=== PATIENT | male | born 1950 | race Caucasian/White ===

== ENCOUNTER 2017-05-12 19:57 | Emergency (ER) | payer OTHER ==
[~2017-05-12] VITALS: Ht 180.3 cm; Wt 90.1 kg
[~2017-05-12 19:57] MED LIST: ASPI81TA21 PO; ATEN50TA PO; LISI-461 PO; MULTTAB58 PO; ONDA4TAB7 SL; PROC1TAB5 PO; SILD100T PO; SIMV20TA2 PO; TESTOSTERONE CYPIONATE IM
[2017-05-12 19:59] VITALS: TEMP 36.8; Ht 180.3 cm; Wt 90.1 kg
[2017-05-12] MEDS ORDERED: PROMETHAZINE HCL INJ 25 MG in SODIUM CHLORIDE 0.9% 50ML 50 ML IV STA (20:16)
[2017-05-12] MEDS ORDERED: SODIUM CHLORIDE 0.9% 1000ML 1,000 ML IV STA (20:16)
[2017-05-12] MEDS ORDERED: MoRPHine SULFATE 10 MG/ML CARP/VIAL IV STA (20:16)
[2017-05-12] MEDS ORDERED: MoRPHine SULFATE 4 MG/ML 1 ML CARP\\VIAL ONE (20:29)
[2017-05-12] MEDS ORDERED: MoRPHine SULFATE 2 MG/ML CARP ONE (20:29)
[2017-05-12 20:32] LABS: BASO % 0.1 %; BASO ABS # 0.01 K/uL (0-0.2); COMPLETE YES; IG% 0.3 %; LYMPH % 6.1 %; MEAN CELL VOLUME 89.9 fL (80-100); MEAN CORPUSCULAR HEMOGLOBIN 31.6 pg (25-34); MEAN CORPUSCULAR HGB CONC 35.1 g/dl (32-36); MEAN PLATELET VOLUME 11.3 fL (7.4-10.4); MONO % 2.3 %; NEUT % 91.2 %; PLATELET COUNT 244 K/uL (130-400); RED BLOOD COUNT 4.56 M/uL (4.7-6.1); WHITE BLOOD COUNT 11.46 K/uL (4.8-10.8)
[2017-05-12 20:55] LABS: BUN/CREATININE RATIO 8.2 (10-20); CREATININE 1.3 mg/dl (0.60-1.40); POTASSIUM 3.8 mmol/L (3.5-5.1)
--- NOTE | 2017-05-12 21:36 | DIAGNOSTIC IMAGING REPORT ---
PA CHEST RADIOGRAPH AND UPRIGHT AND SUPINE AP RADIOGRAPHS OF THE ABDOMEN CLINICAL HISTORY: Upper abdominal pain and vomiting. COMPARISON STUDY: Chest radiograph with abdominal series October 01, 2013. FINDINGS: No pneumothorax or pleural effusion is present. Pulmonary vascularity is normal. Mild left basilar opacity suggests atelectasis. There is no consolidation to suggest pneumonia. Cardiomediastinal silhouette is normal. A 3.4 cm calcified abnormality projecting inferior to the right coracoid process is unchanged since earlier exams. This is likely within the subcoracoid bursa and suggests a loose body. There is no free air. Mild dextroscoliosis of the lumbar spine is present. Pelvic calcifications likely reflect phleboliths. The bowel gas pattern is normal. IMPRESSION: 1. No free air or evidence of bowel obstruction. 2. No acute cardiopulmonary findings. Electronically signed by: Trent Marks M.D. 05/12/2017 9:35 PM Dictated Date/Time: 05/12/2017 9:29 PM
[2017-05-12] MEDS ORDERED: ONDANSETRON HOME PACK 4MG OD TAB PO ONE (22:00)
[2017-05-12] MEDS ORDERED: ONDA4TAB10 SL (22:10)
--- NOTE | 2017-05-12 22:13 | EMERGENCY ROOM VISIT NOTE ---
History First contact with patient: 20:03 Chief Complaint: ABDOMINAL PAIN Stated Complaint: STOMACH VERY UPSET Nursing Triage Summary: Dealing with pain for 6 years, but acute onset today at 0930. Did have some pain yesterday. Pressure under rib cage. Hx gastroenteritis. History of Present Illness The patient is a 67 year old male who presents to the Emergency Room with complaints of intense abdominal pain. The patient states he has had issues with his stomach for the past 6 years. He reports he has occasional flareups of pain and vomiting. He has had a gradual onset of symptoms beginning yesterday morning. He reports he had intense pain in his upper abdomen. He has associated nausea and vomiting. He rates his discomfort a 9/10. The patient has had multiple episodes similar to this previously. He states this is not the worst episode of symptoms he has had. He describes the pain as a feeling of pressure. He has seen multiple specialists and had endoscopies performed. He reports that most recently, he was told by gastroenterology that his symptoms were secondary to his marijuana use. He continues to use marijuana. He denies fevers/chills, chest pain, shortness of breath, changes in bowel movements, urinary symptoms, hematemesis, melena or hematochezia. Review of Systems A complete 10 point review of systems was reviewed with the patient with pertinent positives and negatives as per history of present illness. All else were negative. Past Medical/Surgical History Medical Problems: (1) HYPERTENSION NOS Social History Smoking Status: Former Smoker Alcohol Use: occasionally Drug Use: none Marital Status: single Housing Status: lives alone Occupation Status: unemployed Current/Historical Medications Scheduled Atenolol (Tenormin), 50 MG PO DAILY Lisinopril (Zestril), 10 MG PO DAILY Multiple Vitamin (Multivitamin), 1 TABLET PO DAILY Ondasetron Odt (Zofran Odt), 4 MG SL Q6H Sildenafil Citrate (Viagra), 50-100 MG PO PRN/UD Simvastatin (Zocor), 20 MG PO HS Physical Exam Vital Signs Date Time Temp Pulse Resp B/P (MAP) Pulse Ox O2 Delivery O2 Flow Rate FiO2 05/12/17 22:19 86 18 132/76 98 05/12/17 20:20 78 20 162/86 96 Room Air 05/12/17 19:59 36.8 89 20 160/95 95 Room Air Physical Exam VITALS: Vitals are noted on the nurse's note and reviewed by myself. Vital signs stable. GENERAL: This is a 67-year-old male, in no acute distress, nondiaphoretic, well- developed well-nourished. EARS: External auditory canals clear, tympanic membranes pearly [place] without erythema or effusion bilaterally. EYES: Pupils equal round and reactive to light and accommodation. MOUTH: Mucous membranes moist. NECK: Supple without nuchal rigidity. HEART: Regular rate and rhythm without murmurs gallops or rubs. LUNGS: Clear to auscultation bilaterally without wheezes, rales or rhonchi. ABDOMEN: Positive bowel sounds x 4. Soft, tenderness in the epigastric region. No guarding or rebound tenderness. NEURO: Patient was alert and oriented to person place and time. Medical Decision & Procedures ER Provider Diagnostic Interpretation: PA CHEST RADIOGRAPH AND UPRIGHT AND SUPINE AP RADIOGRAPHS OF THE ABDOMEN CLINICAL HISTORY: Upper abdominal pain and vomiting. COMPARISON STUDY: Chest radiograph with abdominal series October 01, 2013. FINDINGS: No pneumothorax or pleural effusion is present. Pulmonary vascularity is normal. Mild left basilar opacity suggests atelectasis. There is no consolidation to suggest pneumonia. Cardiomediastinal silhouette is normal. A 3.4 cm calcified abnormality projecting inferior to the right coracoid process is unchanged since earlier exams. This is likely within the subcoracoid bursa and suggests a loose body. There is no free air. Mild dextroscoliosis of the lumbar spine is present. Pelvic calcifications likely reflect phleboliths. The bowel gas pattern is normal. IMPRESSION: 1. No free air or evidence of bowel obstruction. 2. No acute cardiopulmonary findings. Laboratory Results 05/12/17 20:15 Red Blood Count 4.56, Mean Corpuscular Volume 89.9, Mean Corpuscular Hemoglobin 31.6, Mean Corpuscular Hemoglobin Concent 35.1, Mean Platelet Volume 11.3, Neutrophils (%) (Auto) 91.2, Lymphocytes (%) (Auto) 6.1, Monocytes (%) (Auto) 2.3, Eosinophils (%) (Auto) 0.0, Basophils (%) (Auto) 0.1, Neutrophils # (Auto) 10.46, Lymphocytes # (Auto) 0.70, Monocytes # (Auto) 0.26, Eosinophils # (Auto) 0.00, Basophils # (Auto) 0.01 05/12/17 20:15 Test 05/12/17 20:15 White Blood Count 11.46 K/uL (4.8-10.8) Red Blood Count 4.56 M/uL (4.7-6.1) Hemoglobin 14.4 g/dL (14.0-18.0) Hematocrit 41.0 % (42-52) Mean Corpuscular Volume 89.9 fL (80-100) Mean Corpuscular Hemoglobin 31.6 pg (25-34) Mean Corpuscular Hemoglobin Concent 35.1 g/dl (32-36) Platelet Count 244 K/uL (130-400) Mean Platelet Volume 11.3 fL (7.4-10.4) Neutrophils (%) (Auto) 91.2 % Lymphocytes (%) (Auto) 6.1 % Monocytes (%) (Auto) 2.3 % Eosinophils (%) (Auto) 0.0 % Basophils (%) (Auto) 0.1 % Neutrophils # (Auto) 10.46 K/uL (1.4-6.5) Lymphocytes # (Auto) 0.70 K/uL (1.2-3.4) Monocytes # (Auto) 0.26 K/uL (0.11-0.59) Eosinophils # (Auto) 0.00 K/uL (0-0.5) Basophils # (Auto) 0.01 K/uL (0-0.2) RDW Standard Deviation 41.9 fL (36.4-46.3) RDW Coefficient of Variation 12.8 % (11.5-14.5) Immature Granulocyte % (Auto) 0.3 % Immature Granulocyte # (Auto) 0.03 K/uL (0.00-0.02) Anion Gap 10.0 mmol/L (3-11) Est Creatinine Clear Calc Drug Dose 58.7 ml/min Estimated GFR () 65.4 Estimated GFR (Non- 56.5 BUN/Creatinine Ratio 8.2 (10-20) Calcium Level 10.0 mg/dl (8.5-10.1) Total Bilirubin 0.4 mg/dl (0.2-1) Aspartate Amino Transf (AST/SGOT) 15 U/L (15-37) Alanine Aminotransferase (ALT/SGPT) 25 U/L (12-78) Alkaline Phosphatase 59 U/L (45-117) Total Protein 7.9 gm/dl (6.4-8.2) Albumin 4.0 gm/dl (3.4-5.0) Globulin 3.9 gm/dl (2.5-4.0) Albumin/Globulin Ratio 1.0 (0.9-2) Lipase 117 U/L (73-393) Medications Administered Medications (Trade) Dose Ordered Sig/Heather Route Start Time Stop Time Status Last Admin Dose Admin Sodium Chloride 1,000 ml @ 999 mls/hr Q1H1M STAT IV 05/12/17 20:16 05/12/17 21:16 DC 05/12/17 20:34 999 MLS/HR Promethazine HCl 25 mg/Sodium Chloride 51 ml @ 204 mls/hr NOW STAT IV 05/12/17 20:16 05/12/17 20:30 DC 05/12/17 20:34 204 MLS/HR Morphine Sulfate (MoRPHine SULFATE INJ) 4 mg STK-MED ONCE .ROUTE 05/12/17 20:29 05/12/17 20:30 DC 05/12/17 20:35 4 MG Morphine Sulfate (MoRPHine SULFATE INJ) 2 mg STK-MED ONCE .ROUTE 05/12/17 20:29 05/12/17 20:30 DC 05/12/17 20:35 2 MG Ondansetron HCl (ZOFRAN ODT 4MG Home Pack) 1 homepack UD ONCE PO 05/12/17 22:00 05/12/17 22:01 DC 05/12/17 22:16 1 HOMEPACK ED Course The patient was evaluated as above. Labs were drawn and IV access was obtained. Patient was medicated with normal saline solution, morphine and Phenergan. Abdominal series was performed and read by radiology as above. Patient was reevaluated and reported complete relief of his symptoms. Discharge instructions were reviewed with the patient. The patient verbalized understanding of my assessment and treatment plan and was discharged home in good condition. Medical Decision Differential diagnosis includes bowel obstruction, gallbladder disease, constipation, cyclical vomiting syndrome, gastritis, gastroenteritis, among others. The patient is a 67-year-old male who presents today complaining of abdominal pain and vomiting. Patient reports a long history of similar symptoms. Labs revealed mild leukocytosis consistent with vomiting. No concerning anemia or electrolyte abnormalities abdominal series showed no evidence of obstruction. Patient was medicated with analgesics and antiemetics and had complete relief of his symptoms. He was instructed to follow-up with his consulting psychiatrist for further evaluation. He was given a prescription for Zofran ODT to be used at home as needed. Based on the patient's presentation and work up, I feel the patient is stable for outpatient treatment. The patient was educated to return to the emergency department for any worsening of their current condition or new/concerning symptoms. He will follow up with his PCP and GI. Medication Reconcilliation Current Medication List: was personally reviewed by me Blood Pressure Screening Patient's blood pressure: Elevated blood pressure Blood pressure disposition: Elevated BP felt to be situational Impression Primary Impression: Epigastric abdominal pain Departure Information Dispostion Home / Self-Care Condition GOOD Prescriptions Ondasetron Odt (ZOFRAN ODT) 4 Mg Tab 4 MG SL Q6H for Nausea, #15 TAB Prov: Shaneka Stokcton ., JENNIFER 05/12/17 Referrals China Santiago M.D. (MEDICAL) (PCP) Patient Instructions My [facility] Additional Instructions You have been prescribed Zofran to be used for any nausea or vomiting. Take as prescribed. For pain control, you can use the following [id number] medicines (if >12 yo): - Regular strength (325mg/tab) Tylenol (acetaminophen) 2 tabs every 4-6 hours as needed. Do not exceed 12 tablets in a 24 hour period. Avoid taking more than 4 grams (4000 mg) of Tylenol per day. This includes any other sources of acetaminophen you may take on a regular basis. - Regular strength (200 mg/tab) Advil (ibuprofen) 1-2 tabs every 4-6 hours as needed. Do not exceed a dose of 3200 mg per day. Follow-up with your consulting psychiatrist or primary care provider for further evaluation. Return to the emergency department for worsening pain, worsening vomiting, fevers or any other new/concerning symptoms.
[2017-05-12 22:19] VITALS: BP 132/76; PULSE 86; O2SAT 98
== END 2017-05-12 22:20 | disposition home or self-care (01) ==
LOC: C.EDB 19:59
DX: R10.13 Epigastric pain (principal); I10 Essential (primary) hypertension; Z87.891 Personal history of nicotine dependence; Z79.899 Other long term (current) drug therapy

== ENCOUNTER 2017-12-05 21:23 | Emergency (ER) | payer OTHER ==
[~2017-12-05] VITALS: Ht 180.3 cm; Wt 89.0 kg
[~2017-12-05 21:23] MED LIST changes: -ASPI81TA21 PO; -ONDA4TAB7 SL; -PROC1TAB5 PO; -TESTOSTERONE CYPIONATE IM
[2017-12-05 21:30] VITALS: Ht 180.3 cm; Wt 89.0 kg
[2017-12-05] MEDS ORDERED: FAMOTIDINE 20MG/5ML IV PUSH IV STA (23:16)
[2017-12-05] MEDS ORDERED: MoRPHine SULFATE 4 MG/ML 1 ML CARP\\VIAL IV STA (23:16)
[2017-12-05] MEDS ORDERED: ONDANSETRON INJ 2 MG/ML 2 ML VIAL IV STA (23:16)
[2017-12-05] MEDS ORDERED: KETOROLAC TROMETHAMINE 30 MG/ML VIAL IV STA (23:16)
[2017-12-05] MEDS ORDERED: SODIUM CHLORIDE 0.9% 1000ML 1,000 ML IV STA (23:16)
--- NOTE | 2017-12-05 23:18 | EMERGENCY ROOM VISIT NOTE ---
History Report prepared by Scribe: Maggie Lai Under the Supervision of: Dr. Zuleyma Marti M.D. First contact with patient: 23:09 Chief Complaint: ABDOMINAL PAIN Stated Complaint: STOMACH Nursing Triage Summary: Patient states "My stomach is very upset. I've been here several times for it already over the years. I have some burning in it. They usually last 8-10 hours. This has been all night, had a little break, then it started again. I can't take it anymore." History of Present Illness The patient is a 67 year old male who presents to the Emergency Room with complaints of intermittent abdominal pain for the past 20 hours. He states his current abdominal pain feels like "a burning sensation" and "extreme pressure", which he rates as a 7/10 in severity. The pain started yesterday evening, then "let up a little" earlier today, and came back this evening. He denies any fevers but has been nauseous and has vomited several times. He has also experienced diarrhea. The patient states he has a history of cyclic vomiting syndrome and has been seen here in the ED for "several times over the years". He follows with Dr. Chi of [facility], but cannot remember the last time he saw him. He denies any recent changes to his diet or medications. 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 A total of 10 systems reviewed and were otherwise negative. Past Medical & Surgical Medical Problems: (1) HYPERTENSION NOS Social History Smoking Status: Never Smoker Alcohol Use: occasionally Drug Use: none Marital Status: single Housing Status: lives alone Occupation Status: unemployed Current/Historical Medications Scheduled Atenolol (Tenormin), 50 MG PO DAILY Lisinopril (Zestril), 20 MG PO DAILY Multiple Vitamin (Multivitamin), 1 TABLET PO DAILY Pantoprazole (Protonix), 40 MG PO DAILY Sildenafil Citrate (Viagra), 50-100 MG PO PRN/UD Simvastatin (Zocor), 20 MG PO HS Allergies Coded Allergies: No Known Allergies (Unverified , 12/06/17) Physical Exam Vital Signs Date Time Temp Pulse Resp B/P (MAP) Pulse Ox O2 Delivery O2 Flow Rate FiO2 12/06/17 05:32 70 16 151/81 96 12/06/17 02:50 36.5 63 20 168/85 95 Room Air 12/06/17 01:13 61 22 170/89 97 Room Air 12/06/17 00:33 71 20 138/82 95 Room Air 12/05/17 23:52 60 12/05/17 23:50 62 20 138/82 96 Room Air 12/05/17 21:30 36.5 64 18 167/90 96 Room Air Physical Exam Vital signs reviewed. General: Well-appearing 67 year old male, in no significant distress. HEENT: No scleral icterus, PERRLA, neck supple. Atraumatic. Cardiovascular: Regular rate and rhythm, no extra sounds. Pulmonary: Clear to auscultation bilaterally, normal work of breathing. Abdomen: Soft, mild epigastric pain to palpation, nondistended, positive bowel sounds. Musculoskeletal: Atraumatic, no peripheral edema. Neurologic: Patient awake alert and oriented x 3 Skin: Warm, dry, no rash Medical Decision & Procedures ER Provider Diagnostic Interpretation: Radiology results as stated below per my review and radiologist interpretation: CHEST X-RAY No evidence of pulmonary infiltrate. No free air. No pneumothorax. CT ABDOMEN & PELVIS With Contrast: Comparison: CT and pelvis 01/22/13 Mild thickening of distal esophagus and there is a small amount of contrast within the distal esophagus, suggesting reflux esophagitis as most likely cause. Elevation of left hemidiaphragm, new from prior. Colonic diverticulosis without evidence of acute diverticulitis. Normal appendix. No free air or free fluid. No bowel obstruction. Mild atherosclerotic calcifications. A few likely calcified granulomas right middle lobe, liver, and spleen. Gallbladder is unremarkable. No biliary ductal dilatation. Multilevel degenerative changes of spine Radiologist: Viktor Mayer MD Laboratory Results 12/05/17 22:45 Red Blood Count 4.84, Mean Corpuscular Volume 89.0, Mean Corpuscular Hemoglobin 31.8, Mean Corpuscular Hemoglobin Concent 35.7, Mean Platelet Volume 11.6, Neutrophils (%) (Auto) 86.3, Lymphocytes (%) (Auto) 5.1, Monocytes (%) (Auto) 8.1, Eosinophils (%) (Auto) 0.0, Basophils (%) (Auto) 0.1, Neutrophils # (Auto) 18.06, Lymphocytes # (Auto) 1.06, Monocytes # (Auto) 1.70, Eosinophils # (Auto) 0.00, Basophils # (Auto) 0.03 12/05/17 22:45 Test 12/05/17 22:45 12/05/17 23:25 White Blood Count 20.93 K/uL (4.8-10.8) Red Blood Count 4.84 M/uL (4.7-6.1) Hemoglobin 15.4 g/dL (14.0-18.0) Hematocrit 43.1 % (42-52) Mean Corpuscular Volume 89.0 fL (80-100) Mean Corpuscular Hemoglobin 31.8 pg (25-34) Mean Corpuscular Hemoglobin Concent 35.7 g/dl (32-36) Platelet Count 274 K/uL (130-400) Mean Platelet Volume 11.6 fL (7.4-10.4) Neutrophils (%) (Auto) 86.3 % Lymphocytes (%) (Auto) 5.1 % Monocytes (%) (Auto) 8.1 % Eosinophils (%) (Auto) 0.0 % Basophils (%) (Auto) 0.1 % Neutrophils # (Auto) 18.06 K/uL (1.4-6.5) Lymphocytes # (Auto) 1.06 K/uL (1.2-3.4) Monocytes # (Auto) 1.70 K/uL (0.11-0.59) Eosinophils # (Auto) 0.00 K/uL (0-0.5) Basophils # (Auto) 0.03 K/uL (0-0.2) RDW Standard Deviation 43.0 fL (36.4-46.3) RDW Coefficient of Variation 13.2 % (11.5-14.5) Immature Granulocyte % (Auto) 0.4 % Immature Granulocyte # (Auto) 0.08 K/uL (0.00-0.02) Anion Gap 11.0 mmol/L (3-11) Est Creatinine Clear Calc Drug Dose 63.6 ml/min Estimated GFR () 72.1 Estimated GFR (Non- 62.2 BUN/Creatinine Ratio 13.1 (10-20) Calcium Level 9.8 mg/dl (8.5-10.1) Magnesium Level 2.1 mg/dl (1.8-2.4) Total Bilirubin 0.9 mg/dl (0.2-1) Direct Bilirubin 0.2 mg/dl (0-0.2) Aspartate Amino Transf (AST/SGOT) 18 U/L (15-37) Alanine Aminotransferase (ALT/SGPT) 27 U/L (12-78) Alkaline Phosphatase 60 U/L (45-117) Total Protein 8.5 gm/dl (6.4-8.2) Albumin 4.4 gm/dl (3.4-5.0) Lipase 101 U/L (73-393) Bedside Troponin I < 0.030 ng/ml (0-0.045) Laboratory results per my review. Medications Administered Medications (Trade) Dose Ordered Sig/Heather Route Start Time Stop Time Status Last Admin Dose Admin Morphine Sulfate (MoRPHine SULFATE INJ) 4 mg NOW STAT IV 12/05/17 23:16 12/05/17 23:19 DC 12/05/17 23:16 4 MG Ondansetron HCl (Zofran Inj) 4 mg NOW STAT IV 12/05/17 23:16 12/05/17 23:19 DC 12/05/17 23:16 4 MG Ketorolac Tromethamine (Toradol Inj) 30 mg NOW STAT IV 12/05/17 23:16 12/05/17 23:19 DC 12/05/17 23:16 30 MG Famotidine (Pepcid 20mg Iv Push) 20 mg ONE STAT IV 12/05/17 23:16 12/05/17 23:19 DC 12/05/17 23:16 20 MG Sodium Chloride 1,000 ml @ 999 mls/hr Q1H1M STAT IV 12/05/17 23:16 12/06/17 00:16 DC 12/05/17 23:16 999 MLS/HR Pantoprazole Sodium (Protonix Tab) 40 mg NOW STAT PO 12/06/17 04:55 12/06/17 04:56 DC 12/06/17 05:31 40 MG ECG Per My Interpretation Indication: abdominal pain Rate (beats per minute): 63 Rhythm: normal sinus Findings: left axis deviation, other (no ST segment changes, QTC of 450 miliseconds) ED Course 2313: Past medical records reviewed. The patient was evaluated in room C2B. A complete history and physical examination was performed. 2316: NSS 1000 ml @ 999 mls/hr IV, Famotidine 20 mg IV, Toradol 30 mg IV, Zofran 4 mg IV, Morphine Sulfate 4 mg IV. 0345: I reevaluated the patient. He is sleeping. 0450: I reevaluated the patient. He is resting comfortably. I discussed his results and discharge instructions and he verbalized complete understanding and agreement. 0450: Protonix 40 mg PO. Medical Decision Differential diagnosis: Etiologies such as gastroenteritis, food borne illness, infections, appendicitis , diverticulitis, inflammatory bowel disease, obstruction, GI bleed, biliary pathology, marijuana use, cyclic vomiting syndrome, as well as others were entertained. This patient was evaluated and appeared to be in some discomfort. IV access was obtained and laboratory work was drawn. The patient was placed on the monitoring analyst and found to be in a normal sinus rhythm. Laboratory work reveals a significant leukocytosis. A CT scan of the abdomen and pelvis was performed and is significant for distal esophageal thickening and reflux. Patient was treated with IV morphine, IV Toradol and Zofran. He was feeling improved after IV hydration. Suspect the leukocytosis is reactive secondary to the vomiting. Patient has a marijuana dependency and has been informed that this is likely causing his symptoms previously although has not stopped daily usage. Patient was given IV Pepcid 20 mg and a p.o. Protonix. He was discharged with a prescription for Protonix daily. 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 I confirm that the note above accurately reflects all work, treatment, procedures, and medical decision making performed by me. Departure Information Dispostion Home / Self-Care Prescriptions Pantoprazole (Protonix) 40 Mg Tab 40 MG PO DAILY, #30 TAB Prov: Zuleyma Marti M.D. 12/06/17 Referrals China Santiago M.D. (MEDICAL) (PCP) Patient Instructions My [facility] Additional Instructions Diagnosis: GERD, gastritis Protonix 40 mg daily. It is recommended to stop using marijuana. Do not use medications such as aspirin, Aleve or ibuprofen. Follow-up with your heavy equipment operator/paver as soon as possible for evaluation. Return to the ER for worsening symptoms or any medical concerns. Problem Qualifiers
[2017-12-05 23:30] LABS: BASO % 0.1 %; BASO ABS # 0.03 K/uL (0-0.2); HEMATOCRIT 43.1 % (42-52); HEMOGLOBIN 15.4 g/dL (14.0-18.0); IG# 0.08 K/uL (0.00-0.02); LYMPH % 5.1 %; LYMPH ABS # 1.06 K/uL (1.2-3.4); MEAN CORPUSCULAR HEMOGLOBIN 31.8 pg (25-34); MEAN CORPUSCULAR HGB CONC 35.7 g/dl (32-36); MEAN PLATELET VOLUME 11.6 fL (7.4-10.4); MONO % 8.1 %; NEUT % 86.3 %; NEUT ABS # 18.06 K/uL (1.4-6.5); PLATELET COUNT 274 K/uL (130-400); RED CELL DISTRIBUTION WIDTH CV 13.2 % (11.5-14.5); WHITE BLOOD COUNT 20.93 K/uL (4.8-10.8)
[2017-12-05 23:56] LABS: ALBUMIN 4.4 gm/dl (3.4-5.0); CALCIUM 9.8 mg/dl (8.5-10.1); CREATININE 1.2 mg/dl (0.60-1.40); POTASSIUM 3.4 mmol/L (3.5-5.1)
[2017-12-05 23:59] LABS: TOTAL PROTEIN 8.5 gm/dl (6.4-8.2)
[2017-12-06] MEDS ORDERED: OPTIRAY 320 IV PRN (01:30)
[2017-12-06] MEDS ORDERED: LISI-725 PO (01:32)
[2017-12-06 02:50] VITALS: TEMP 36.5
[2017-12-06] MEDS ORDERED: PANTOprazole SOD 40 MG TAB PO STA (04:55)
[2017-12-06] MEDS ORDERED: PANT40TA PO (05:13)
[2017-12-06 05:32] VITALS: BP 151/81; PULSE 70; O2SAT 96
--- NOTE | 2017-12-06 07:00 | DIAGNOSTIC IMAGING REPORT ---
PA CHEST RADIOGRAPH AND UPRIGHT AND SUPINE AP RADIOGRAPHS OF THE ABDOMEN CLINICAL HISTORY: Epigastric pain and vomiting. COMPARISON STUDY: Chest radiograph and abdominal series May 12, 2017. FINDINGS: A 3.3 cm calcified abnormality projecting into inferior to the right coracoid process is unchanged since earlier exams. This is likely within the subcoracoid bursa and suggests a loose body. Lung volumes are normal. No pneumothorax or pleural effusion is noted. There is no consolidation or evidence for pulmonary edema. Cardiomediastinal silhouette is normal. There is no free air. Note is made of mild dextroscoliosis of the lumbar spine. The bowel gas pattern is normal. IMPRESSION: 1. No free air or evidence of bowel obstruction. 2. No acute cardiopulmonary findings. Electronically signed by: Trent Marks M.D. 12/06/2017 6:59 AM Dictated Date/Time: 12/06/2017 6:57 AM
--- NOTE | 2017-12-06 07:08 | DIAGNOSTIC IMAGING REPORT ---
CT OF THE ABDOMEN AND PELVIS WITH CONTRAST CLINICAL HISTORY: Epigastric pain and vomiting. COMPARISON STUDY: CT of the abdomen and pelvis January 22, 2013 and abdominal series performed earlier today. TECHNIQUE: Following IV administration of 93 mL of [id number]-[id number], axial images of the abdomen and pelvis were obtained from the lung bases to the proximal femurs. Images were reviewed in the axial, sagittal, and coronal planes. IV contrast was administered without complication. A dose lowering technique was utilized adhering to the principles of ALARA. Oral contrast was administered. CT DOSE: 500.44 mGy.cm FINDINGS: There is mild circumferential wall thickening of the distal esophagus. There is trace contrast within the distal esophagus may reflect reflux. The liver, spleen, adrenal glands, pancreas and kidneys are unremarkable. There is no biliary or pancreatic ductal dilatation. There is no hydronephrosis. There is no evidence for a bowel obstruction. The appendix is normal. There is sigmoid diverticulosis without evidence for acute diverticulitis. No suspicious osseous lesions are present. There is no lymphadenopathy. Note is made of mild elevation of the left hemidiaphragm. No free air, pneumatosis or portal venous gas is present. IMPRESSION: 1. Mild circumferential distal esophageal wall thickening which may reflect esophagitis. 2. No bowel obstruction. 3. Normal appendix. 4. Colonic diverticulosis without evidence for acute diverticulitis. Electronically signed by: Trent Marks M.D. 12/06/2017 7:07 AM Dictated Date/Time: 12/06/2017 7:03 AM
== END 2017-12-06 05:32 | disposition home or self-care (01) ==
LOC: C.EDB 21:25 → C.EDC 12-06 05:32
DX: K29.70 Gastritis, unspecified, without bleeding (principal); K21.9 Gastro-esophageal reflux disease without esophagitis; F12.20 Cannabis dependence, uncomplicated; I10 Essential (primary) hypertension; Z79.899 Other long term (current) drug therapy